=== PATIENT | female | born 1955 | race Two or more races ===

== ENCOUNTER 2023-07-20 10:13 | Emergency (ER) | payer OTHER ==
[~2023-07-20] VITALS: Ht 167.6 cm; Wt 68.0 kg
[2023-07-20] MEDS ORDERED: JANUMET 50-1,01 EACH PO (10:18)
[2023-07-20] MEDS ORDERED: SYNTHROID100 MCG PO (10:18)
[2023-07-20 13:10] LABS: HEMATOCRIT 41.5 % (36.0-45.00); HEMOGLOBIN 13.7 g/dL (12.0-15.00); MEAN CELL VOLUME 90.8 fL (80.00-100.00); PLATELET COUNT 270 K/uL (150-450); RED BLOOD COUNT 4.57 M/uL (4.00-6.00); RED CELL DISTRIBUTION WIDTH 13.6 % (11.5-14.5)
[2023-07-20 13:43] LABS: CALCIUM 9.2 mg/dL (8.5-10.1); CREATININE SERUM 0.72 mg/dL (0.55-1.02); GFR 80.79; POTASSIUM 3.82 mEq/L (3.5-5.1)
[2023-07-20 14:39] LABS: PH,URINE 6.5 (5.0-8.0); URINE APPEARANCE Clear; URINE BILIRRUBIN Negative (NEGATIVE); URINE BLOOD Small; URINE COLOR Yellow; URINE GLUCOSE Negative (NEGATIVE); URINE LEUKOCYTE Negative; URINE NITRATE Negative; URINE PROTEIN Negative (NEGATIVE); URINE UROBILINOGEN 0.2 E.U./dl
[2023-07-20 14:40] LABS: URINE EPITHELIAL CELLS 4.9 uL (0.0-38.8); URINE RBC 18.8 uL (0.0-20.8); URINE WBC 2.9 uL (0.0-23.2)
[2023-07-20] MEDS ORDERED: OSEL75CA PO (16:54)
== END 2023-07-20 17:34 | disposition home or self-care (01) ==
LOC: ER 10:14
PROVIDERS: General Practice
DX: J10.1 Influenza due to other identified influenza virus with other respiratory manifestations (principal); E11.9 Type 2 diabetes mellitus without complications; Z79.84 Long term (current) use of oral hypoglycemic drugs
CPT/HCPCS: 96365; 96366; 99284; J1885; J7030

== ENCOUNTER → 2023-10-04 14:12 | Outpatient (CLI) | payer OTHER ==
[~2023-10-04 14:12] MED LIST: JANUMET 50-1,01 EACH PO; OSEL75CA PO; SYNTHROID100 MCG PO
== END | disposition home or self-care (01) ==
LOC: NUCLEAR 13:00
PROVIDERS: ATTEND General Practice
DX: M81.0 Age-related osteoporosis without current pathological fracture (principal)